=== PATIENT | female | born 1950 | race Caucasian/White ===

== ENCOUNTER 2016-08-07 13:18 | Emergency (ER) | payer MEDICARE ==
[~2016-08-07] VITALS: Ht 175.3 cm; Wt 72.6 kg
[~2016-08-07 13:18] MED LIST: ALPR1TAB2 PO; ALPR2TAB2 PO; ATOR20TA58 PO; FLUO20CA16 PO; HYDR-2679 PO; LEVO112T4 PO; ZOLP10TA PO
[2016-08-07 13:22] VITALS: BP 128/75
--- NOTE | 2016-08-07 14:02 | PHYS DOC ---
Past Medical History Past Medical History: Anxiety, Depression, GERD, High Cholesterol, Hypothyroid Additional Past Medical Histor: "gallbladder problems", "liver problem" Past Surgical History: Hysterectomy, Tonsillectomy Additional Past Surgical Histo: R wrist fx Alcohol Use: None Drug Use: None Adult General Chief Complaint Chief Complaint: WRIST PAIN [facility] HPI Patient is a 66 year old female who presents with complaint of left wrist pain after suffering a fall at home prior to arrival. Patient states that she actually tripped over a throw rug in her home and fell forward onto a carpeted floor. Patient states that she reached out with her left hand to try to catch her fall. Patient denies head injury or loss of consciousness. Patient states she started getting immediate pain in her left wrist and notes swelling along the dorsum of her wrist. Patient states that she is also having pain along the volar aspect of her wrist. Patient states that she is not on any blood thinners currently. Patient states her pain as 10 out of 10 and that the pain worsens with movement and improves with rest. Patient has not taken any medications at this time to help with symptoms. Review of Systems Review of Systems Constitutional: Denies fever or chills [] Eyes: Denies change in visual acuity, redness, or eye pain [] HENT: Denies nasal congestion or sore throat [] Respiratory: Denies cough or shortness of breath [] Cardiovascular: No additional information not addressed in HPI [] GI: Denies abdominal pain, nausea, vomiting, bloody stools or diarrhea [] : Denies dysuria or hematuria [] Musculoskeletal: Left wrist pain [] Integument: Denies rash or skin lesions [] Neurologic: Denies headache, focal weakness or sensory changes [] Current Medications Current Medications Current Medications Medications (Trade) Dose Ordered Sig/[facility] Start Time Stop Time Status Last Admin Dose Admin Acetaminophen/ Hydrocodone Bitart (Lortab 7.5/325) 1 tab 1X ONCE 08/07/16 14:30 08/07/16 14:31 DC 08/07/16 14:07 1 TAB Allergies Allergies Allergies Coded Allergies Type Severity Reaction Last Updated Verified No Known Drug Allergies 09/10/14 No Physical Exam Physical Exam Constitutional: Alert, afebrile, appears in moderate discomfort. [] HENT: Normocephalic, atraumatic, bilateral external ears normal, oropharynx moist, no oral exudates, nose normal. [] Eyes: PERRLA, EOMI, conjunctiva normal, no discharge. [] Neck: Normal range of motion, no tenderness, supple, no stridor. [] Cardiovascular:Heart rate regular rhythm, no murmur [] Lungs & Thorax: Bilateral breath sounds clear to auscultation [] Abdomen: Bowel sounds normal, soft, no tenderness, no masses, no pulsatile masses. [] Skin: Warm, dry, no erythema, no rash. [] Extremities: Hematoma formation over lateral dorsum left wrist, dorsal and volar tenderness to palpation, range of motion not tested secondary to pain, neurovascularly intact distal to injury. [] Neurologic: Alert and oriented X 3, normal motor function, normal sensory function, no focal deficits noted. [] Current Patient Data Vital Signs Vital Signs Date Time Temp Pulse Resp B/P Pulse Ox O2 Delivery O2 Flow Rate FiO2 08/07/16 14:07 14 96 Room Air 08/07/16 13:22 98.8 100 128/75 98.8 EKG EKG Not performed [] Radiology/Procedures Radiology/Procedures [facility] [address] [place] [address] IMAGING REPORT Signed PATIENT: EMPERATRIZ DONIS ACCOUNT: [id number] : 1950 LOCATION: ER AGE: 66 SEX: F EXAM STATUS: REG ER ORD. PHYSICIAN: NITHIN BARTON MD REASON: left wrist injury status post fall PROCEDURE: WRIST 3V LEFT Left wrist, 3 views, 08/07/2016: History: Fall, pain There is an impacted fracture of the distal radius. A fracture line involves its articular surface. The major fracture fragments are not significantly angulated or displaced. The carpal bones appear intact. There is moderate soft tissue swelling. IMPRESSION: Impacted fracture of the distal left radius with intra-articular extension. DICTATED and SIGNED BY: JEANINE ELY MD DATE: 08/07/16 1406 CC: RUTHIE TREVIÑO MD; NITHIN BARTON MD ~ [] Course & Med Decision Making Course & Med Decision Making Pertinent Labs and Imaging studies reviewed. (See chart for details) Patient's x-ray showed an intra-articular distal radius fracture that displayed impaction but no significant angulation. The patient was placed in a sugar tong splint that was applied by the emergency department semiconductor technician. My evaluation post splint application revealed normal capillary refill and normal sensation in all 5 digits of the left hand. The patient was treated with hydrocodone in the emergency department. The patient will be discharged with a prescription for hydrocodone and recommended follow-up with Dr. Perdomo in the next 5 days for reevaluation. Advised return emergency department for any worsening symptoms. Patient voiced understanding and in agreement with treatment plan. Dragon Disclaimer Dragon Disclaimer This electronic medical record was generated, in whole or in part, using a voice recognition dictation system. Departure Departure Impression: Primary Impression: Fracture of left distal radius Disposition: HOME, SELF-CARE Condition: IMPROVED Referrals: RUTHIE TREVIÑO MD (PCP) TIN PERDOMO II, MD Patient Instructions: Wrist Fracture Additional Instructions: Follow-up with Dr. Perdomo in the next 5 days. Return to the emergency department for any worsening symptoms. Scripts Hydrocodone/Apap 5-325 ([place] 5-325 Tablet)1 Each Tablet1-2 Tab PO Q4-6HRS PRN PAIN #40 TAB Prov:NITHIN BARTON MD 08/07/16 Problem Qualifiers Primary Impression: Fracture of left distal radius Encounter type: initial encounter Fracture type: closed Fracture morphology : other intra-articular Qualified Code: S52.572A - Other intraarticular fracture of lower end of left radius, initial encounter for closed fracture NITHIN BARTON MD Aug 07, 2016 14:02
--- NOTE | 2016-08-07 14:13 | RAD ---
Left wrist, 3 views, 08/07/2016: History: Fall, pain There is an impacted fracture of the distal radius. A fracture line involves its articular surface. The major fracture fragments are not significantly angulated or displaced. The carpal bones appear intact. There is moderate soft tissue swelling. IMPRESSION: Impacted fracture of the distal left radius with intra-articular extension.
[2016-08-07] MEDS ORDERED: HYDR-971 PO (14:17)
[2016-08-07] MEDS ORDERED: HYDROCODONE/APAP 7.5/325MG TABLET. PO ONE (14:30)
== END 2016-08-07 14:35 | disposition home or self-care (01) ==
LOC: ER 13:18
DX: S52.572A Other intraarticular fracture of lower end of left radius, initial encounter for closed fracture (principal); F41.9 Anxiety disorder, unspecified; F32.9 Major depressive disorder, single episode, unspecified; K21.9 Gastro-esophageal reflux disease without esophagitis; E78.00 Pure hypercholesterolemia, unspecified; E03.9 Hypothyroidism, unspecified; W01.0XXA Fall on same level from slipping, tripping and stumbling without subsequent striking against object, initial encounter; Y93.89 Activity, other specified; Y92.009 Unspecified place in unspecified non-institutional (private) residence as the place of occurrence of the external cause; Y99.8 Other external cause status
CPT/HCPCS: 29125; 73110; 99284-25

== ENCOUNTER 2017-03-06 23:33 | Inpatient (IN) | payer MEDICARE, MEDICAID ==
[~2017-03-06] VITALS: Ht 175.3 cm; Wt 73.1 kg
[~2017-03-06 23:33] MED LIST changes: +HYDR-971 PO
[2017-03-07] MEDS ORDERED: HYDROmorphone 2 MG/ML VIAL IV ONE
[2017-03-07] MEDS ORDERED: DIPHTH,PERTUSS(ACELL),TET TOX 0.5 ML DISP.SYRIN. VAX IM ONE
[2017-03-07] MEDS ORDERED: ONDANSETRON PF 4 MG/2 ML VIAL. IV ONE
--- NOTE | 2017-03-07 00:39 | RAD ---
RS Compliance Statement: One or more of the following individualized dose reduction techniques were utilized for this examination: 1. Automated exposure control 2. Adjustment of the mA and/or kV according to patient size 3. Use of iterative reconstruction technique CT head without contrast 03/07/2017 12:08 AM INDICATION: Trauma, fall COMPARISON: None available TECHNIQUE: Multiple axial CT images of the head were obtained from skull base through the vertex without intravenous contrast. FINDINGS: Head: Ventricles, sulci and basal cisterns are within normal limits. There is no hydrocephalus. Hart-white matter differentiation is normal. There is no acute intracranial hemorrhage. There is no mass, mass effect or midline shift. Posterior fossa is normal in appearance. Vascular calcifications are present involving the cavernous segments of internal carotid arteries Visualized portions of the orbits are normal. Small mucus retention cyst is identified in the right maxillary sinus. Mastoid air cells are well aerated. Scalp and calvaria are normal. IMPRESSION: No acute intracranial hemorrhage. Electronically signed by: Catalina Fletcher MD (03/07/2017 12:35 AM) [place] [id number]
--- NOTE | 2017-03-07 02:48 | RAD ---
PQRS Compliance Statement: One or more of the following individualized dose reduction techniques were utilized for this examination: 1. Automated exposure control 2. Adjustment of the mA and/or kV according to patient size 3. Use of iterative reconstruction technique CT pelvis without contrast March 07, 2017 INDICATION: Right hip fracture. COMPARISON: Right hip radiograph TECHNIQUE: Multiple axial CT images of the pelvis were obtained without intravenous contrast. Coronal and sagittal reformats are provided. FINDINGS: Small and large bowel are normal in caliber without evidence for bowel obstruction. Normal appendix is visualized. Visualized portions of the pelvic vasculature are normal in caliber. There are no pathologically enlarged lymph nodes in the pelvis. There is no free fluid. No pelvic masses are identified. Urinary bladder is within normal limits. Visualized portions of the lumbar spine are normal. Sacroiliac joints are maintained. Hip joints are symmetric with mild joint space narrowing. There is a minimally impacted right subcapital femoral fracture. No significant displacement or angulation. Acetabulum is intact. The pelvic ring is intact. Pubic symphysis is aligned. Left femur is intact. There is no significant associated soft tissue hematoma. IMPRESSION: 1. Minimally impacted, nondisplaced subcapital right femoral fracture. Critical results were discussed with the ER physician at 2:45 AM on 03/07/2017. Electronically signed by: Catalina Fletcher MD (03/07/2017 2:44 AM) [place] [id number]
[2017-03-07] MEDS ORDERED: fentaNYL PF VIAL 100 MCG/2 ML VIAL IV ONE (03:00)
[2017-03-07] MEDS ORDERED: IV NORMAL SALINE 500ML BAG 500 ML IV ONE (03:15)
[2017-03-07] MEDS ORDERED: ACETAMINOPHEN 325 MG TABLET. PO PRN (03:15)
[2017-03-07] MEDS ORDERED: ONDANSETRON PF 4 MG/2 ML VIAL. IV PRN (03:15)
--- NOTE | 2017-03-07 03:38 | PHYS DOC ---
Past Medical History Past Medical History: Anxiety, Depression, GERD, High Cholesterol, Hypothyroid Additional Past Medical Histor: "gallbladder problems", "liver problem" Past Surgical History: Hysterectomy, Tonsillectomy Additional Past Surgical Histo: R wrist fx Alcohol Use: None Drug Use: None Adult General Chief Complaint Chief Complaint: MECHANICAL FALL HPI HPI Patient is a 67 year old female who presents to the ER today secondary to tripping on a curb at [email or web address] currently complaining of pain to her right hip and her neck. Patient denies any loss of consciousness. Patient has a nausea vomiting. Patient denies any anticoagulant therapy. Patient reports that she's got pain to her right wrist, elbow, shoulder, hip. Patient reports that she's had a prior fracture to her left wrist however she has not followed up with orthopedics as had been scheduled for her. Review of Systems Review of Systems Constitutional: Denies fever or chills Eyes: Denies change in visual acuity, redness, or eye pain HENT: Denies nasal congestion or sore throat Respiratory: Denies cough or shortness of breath All other systems were reviewed and found to be within normal limits, except as documented in this note. Current Medications Current Medications Current Medications Medications (Trade) Dose Ordered Sig/Birgit Start Time Stop Time Status Last Admin Dose Admin Acetaminophen (Tylenol) 650 mg PRN Q4HRS PRN 03/07/17 03:15 03/08/17 03:14 Diphtheria/ Tetanus/Acell Pertussis (Boostrix) 0.5 ml ONCE ONCE 03/07/17 00:00 03/07/17 00:01 DC 03/07/17 00:58 0.5 ML Fentanyl Citrate (Fentanyl 2ml Vial) 50 mcg PRN Q2HR PRN 03/07/17 03:15 03/08/17 03:14 Hydromorphone HCl (Dilaudid) 1 mg 1X ONCE 03/07/17 00:00 03/07/17 00:01 DC 03/07/17 00:00 1 MG Ondansetron HCl (Zofran) 4 mg PRN Q8HRS PRN 03/07/17 03:15 03/08/17 03:14 Sodium Chloride 500 ml @ 500 mls/hr 1X ONCE 03/07/17 03:15 03/07/17 04:14 03/07/17 02:50 500 MLS/HR Allergies Allergies Allergies Coded Allergies Type Severity Reaction Last Updated Verified No Known Drug Allergies 09/10/14 No Physical Exam Physical Exam Constitutional: Well developed, well nourished, no acute distress, non-toxic appearance. HENT: Normocephalic, atraumatic, bilateral external ears normal, oropharynx moist, no oral exudates, nose normal. Eyes: PERRLA, EOMI, conjunctiva normal, no discharge. Neck: Normal range of motion, no tenderness, supple, no stridor. Cardiovascular:Heart rate regular rhythm, no murmur Lungs & Thorax: Bilateral breath sounds clear to auscultation Abdomen: Bowel sounds normal, soft, no tenderness, no masses, no pulsatile masses. Skin: Warm, dry, no erythema, no rash. Back: No tenderness, no CVA tenderness. Extremities: No tenderness, no cyanosis, no clubbing, ROM intact, no edema. Neurologic: Alert and oriented X 3, normal motor function, normal sensory function, no focal deficits noted. Psychologic: Affect normal, judgement normal, mood normal. Patient's ER physical exam is significant for tenderness to palpation to the patient's right hip. Right hip is not shortened or rotated. Patient does have tenderness palpation her right upper extremity greatest in her right wrist and elbow. Patient has no C-spine T-spine or L-spine tenderness to palpation. Patient does have tenderness palpation to her lower back bilaterally and her neck bilaterally. Patient's head is nontender. Patient does not present with any signs or symptoms of be concerning for intra- abdominal trauma thoracic intracranial or neurological deficit. Current Patient Data Vital Signs Vital Signs Date Time Temp Pulse Resp B/P (MAP) Pulse Ox O2 Delivery O2 Flow Rate FiO2 03/07/17 02:34 87 16 95/55 (68) 95 Nasal Cannula 2.0 03/06/17 23:34 97.9 97.9 EKG EKG [] Radiology/Procedures Radiology/Procedures [] Course & Med Decision Making Course & Med Decision Making Pertinent Labs and Imaging studies reviewed. (See chart for details) []X-ray of right hip revealed possible subcapital fracture. CT scan of the right hip confirmed diagnosis of a right subcapital femur fracture. X-ray of her head and neck did not reveal any acute pathology. X-ray of her wrist and elbow did not reveal any acute fracture or pathology. Assessment and plan 67-year-old female who presents here today secondary to a fall with no loss of consciousness. Patient's ER workup is been unremarkable except for a fracture of her right hip. I discussed the case with her primary care physician who is agreed to admit the patient. will be consult. Dragon Disclaimer Dragon Disclaimer This electronic medical record was generated, in whole or in part, using a voice recognition dictation system. Departure Departure Referrals: RUTHIE TREVIÑO MD (PCP) RADHA ANGEL MD Mar 07, 2017 03:38
[2017-03-07 04:30] VITALS: BP 137/67
[2017-03-07] MEDS ORDERED: PANT40TA5 (05:14)
[2017-03-07] MEDS ORDERED: TRAM50TA (05:14)
[2017-03-07] MEDS: IV NORMAL SALINE 1000ML BAG 1,000 ML IV SCH ×3 (05:16→21:25)
[2017-03-07] MEDS: fentaNYL PF VIAL 100 MCG/2 ML VIAL IV PRN ×7 (05:34→23:39)
[2017-03-07 07:00] VITALS: BP 129/76
--- NOTE | 2017-03-07 07:59 | RAD ---
3 views left wrist radiograph 03/07/2017 Clinical indication: Left wrist pain. Comparison: Left wrist 08/07/2016 Findings: Prior plate and screw fixation of distal radial fracture with near anatomic alignment and intact hardware. There appears to be complete healing at the distal radial fracture site. There is an old mildly displaced ulnar styloid fracture. There is diffuse soft tissue swelling about the wrist. Normal alignment of the carpal bones. Impression: 1. Prior distal radial internally fixed fracture and old mildly displaced ulnar styloid fracture. 2. No acute osseous abnormality. If there is focal snuffbox tenderness, immobilization and repeat radiograph in 10-14 days for radiographically occult scaphoid fracture is recommended
--- NOTE | 2017-03-07 08:00 | RAD ---
2 view right elbow radiograph 03/07/2017 Clinical indication: Right arm pain. Comparison: None. Findings: No acute fracture or traumatic malalignment. Joint spaces are maintained. No significant elbow joint effusion. Impression: No acute osseous abnormality.
--- NOTE | 2017-03-07 08:02 | RAD ---
AP pelvis, 2 views right hip 03/06/2017 2:00 AM Indication: trauma Comparison: None Findings: There is a minimally displaced right subcapital femoral neck fracture. Probable mild impaction is noted. No dislocation is seen. No other fractures are identified. No acute soft tissue changes are seen. Impression: Right femoral neck fracture as described.
--- NOTE | 2017-03-07 08:41 | PDOC ---
GENERAL General: right femoral neck fracture. ortho consult in. cleared medically for surgery pending lab,cxr, ekg. see dictated H&P. Problems: VITAL SIGNS Vital Signs: Vital Signs Date Time Temp Pulse Resp B/P (MAP) Pulse Ox O2 Delivery O2 Flow Rate FiO2 03/07/17 06:04 17 98 Nasal Cannula 2.0 03/07/17 04:30 98.0 64 137/67 (90) 98.0 I & O I & O Intake and Output 03/07/17 07:00 Intake Total 500 ml Balance 500 ml Intake Oral 0 ml IV Total 500 ml ALLERGIES Allergies: Allergies Coded Allergies Type Severity Reaction Last Updated Verified No Known Drug Allergies 09/10/14 No MEDS Medications: Current Medications Medications (Trade) Dose Ordered Sig/Birgit Start Time Stop Time Status Last Admin Dose Admin Acetaminophen (Tylenol) 650 mg PRN Q4HRS PRN 03/07/17 03:15 03/08/17 03:14 Diphtheria/ Tetanus/Acell Pertussis (Boostrix) 0.5 ml ONCE ONCE 03/07/17 00:00 03/07/17 00:01 DC 03/07/17 00:58 0.5 ML Fentanyl Citrate (Fentanyl 2ml Vial) 50 mcg PRN Q2HR PRN 03/07/17 03:15 03/08/17 03:14 03/07/17 05:34 50 MCG Hydromorphone HCl (Dilaudid) 1 mg 1X ONCE 03/07/17 00:00 03/07/17 00:01 DC 03/07/17 00:00 1 MG Ondansetron HCl (Zofran) 4 mg PRN Q8HRS PRN 03/07/17 03:15 03/08/17 03:14 03/07/17 05:33 4 MG Sodium Chloride 500 ml @ 500 mls/hr 1X ONCE 03/07/17 03:15 03/07/17 04:14 DC 03/07/17 02:50 500 MLS/HR RUTHIE TREVIÑO MD Mar 07, 2017 08:41
--- NOTE | 2017-03-07 09:01 | EKG ---
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
--- NOTE | 2017-03-07 09:07 | HP ---
ADMIT DATE: CHIEF COMPLAINT AND HISTORY OF PRESENT ILLNESS: This 67-year-old white female is well known to me from followup in the office. The patient was going to [employer] on the evening of admission, where she fell going in. It took 5 people to get her up into a chair. She presented to the Emergency Room, where she was found to have a right femoral neck fracture and admitted for the same. The patient states her balance has been bad now for the last couple of years, worse more. She has had a broken right wrist, left wrist, and now the hip over that length of time. PAST MEDICAL HISTORY: Remarkable for the prior fractures. She has a history of some gallbladder disease, hypothyroidism, hyperlipidemia, GERD, depression and anxiety. PAST SURGICAL HISTORY: Remarkable for prior right wrist fracture, hysterectomy and tonsillectomy. MEDICATIONS: Brought with the patient, listed on the computer and have been addressed. ALLERGIES: She has no known drug allergies. SOCIAL HISTORY: Noncontributory. FAMILY HISTORY: Noncontributory. REVIEW OF SYSTEMS: Remarkable primary for that of pain. PHYSICAL EXAMINATION: GENERAL: She is a well-developed, well-nourished white female in [id number] pain, but lying in the bed. VITAL SIGNS: Stable. She is afebrile. HEAD, EYES, EARS, NOSE AND THROAT: Unremarkable. NECK: Supple, without adenopathy or thyromegaly. CHEST: Clear to auscultation and percussion. HEART: Regular rate and rhythm, without S3, S4 or murmur. ABDOMEN: Soft, nontender, without hepatosplenomegaly or masses. EXTREMITIES: Reveal some shortening external rotation of the right leg, consistent with the hip fracture and tenderness in the right hip area. NEUROLOGIC: She is intact. IMPRESSION: Right hip fracture with multiple other problems as above. PLAN: The patient is medically cleared for surgery, pending labs that I am going to order at this point in time, as it does not appear any was obtained in the Emergency Room; and the patient will be monitored, managed and treated appropriately. RUTHIE TREVIÑO MD DR: CINTHYA/sharla JOB#: [id number] / [id number]
[2017-03-07 09:31] LABS: BASO # 0.1 x10^3/uL (0.0-0.2); BASO % 1 % (0-3); EOS % 0 % (0-3); HEMATOCRIT 36.4 % (36.0-47.0); HEMOGLOBIN 12.2 g/dL (12.0-15.5); LYMPH # 1.1 x10^3/uL (1.0-4.8); LYMPH % 14 % (24-48); MEAN CORPUSCULAR HEMOGLOBIN 31 pg (25-35); MEAN CORPUSCULAR HGB CONC 34 g/dL (31-37); MEAN CORPUSCULAR VOLUME 91 fL (79-100); MONO % 4 % (0-9); NEUT % 81 % (31-73); PLATELET COUNT 148 x10^3/uL (140-400); RED BLOOD COUNT 3.98 x10^6/uL (3.50-5.40); RED CELL DISTRIBUTION WIDTH 13.8 % (11.5-14.5); WHITE BLOOD COUNT 7.7 x10^3/uL (4.0-11.0)
[2017-03-07 09:54] LABS: ALBUMIN 3.1 g/dL (3.4-5.0); CALCIUM 8.3 mg/dL (8.5-10.1); CREATININE 0.8 mg/dL (0.6-1.0); GFR 71.3; POTASSIUM 4.8 mmol/L (3.5-5.1); TOTAL BILIRUBIN 0.7 mg/dL (0.2-1.0); TOTAL PROTEIN 6.3 g/dL (6.4-8.2)
[2017-03-07 10:03] LABS: INR 1.2 (0.8-1.1); PROTHROMBIN TIME PATIENT 14.1 SEC (11.7-14.0)
[2017-03-07 11:00] VITALS: BP 132/76
--- NOTE | 2017-03-07 14:43 | PDOC2 ---
CONSULT Date of Consult Date of Consult DATE: 03/07/17 TIME: 14:35 Reason for Consult Reason for Consult: right hip pain Identification/Chief Complaint Chief Complaint right hip pain Problems: Source Source: Chart review, Patient History of Present Illness Reason for Visit: This 67 -year-old [facility] She couldn't bear weight after that, and was brought to the hospital. She has had multiple falls recently. She had a left wrist fracture a few months ago but has not sought any additional treatment for that, and is still wearing a splint. She had a right wrist fracture about 1 or 2 years ago treated surgically. She is having workup for the frequent falls. She was cleared for surgery by Dr. Barnes. She reports right hip pain which is severe with any motion. She denies any hip problems before that, he did not use a cane or a walker. She lives in an apartment. She still drives. Past Medical History Psych: Anxiety Past Surgical History Past Surgical History: Hysterectomy Social History <1 pack per day Current Problem List Problem List Problems Medical Problems: (1) Hip fracture, right Status: Acute Current Medications Current Medications Current Medications Diphtheria/ Tetanus/Acell Pertussis (Boostrix) 0.5 ml ONCE ONCE VAX IM Last administered on 03/07/17 00:58; Start 03/07/17 at 00:00; Stop 03/07/17 at 00 :01; Status DC Hydromorphone HCl (Dilaudid) 1 mg 1X ONCE IV Last administered on 03/07/17 00:00; Start 03/07/17 at 00:00; Stop 03/07/17 at 00:01; Status DC Ondansetron HCl (Zofran) 4 mg 1X ONCE IV Last administered on 03/07/17 00:00 ; Start 03/07/17 at 00:00; Stop 03/07/17 at 00:01; Status DC Fentanyl Citrate (Fentanyl 2ml Vial) 50 mcg 1X ONCE IV Last administered on 02:55; Start 03/07/17 at 03:00; Stop 03/07/17 at 03:10; Status DC Ondansetron HCl (Zofran) 4 mg PRN Q8HRS PRN IV NAUSEA/VOMITING Last administered on 03/07/17 05:33; Start 03/07/17 at 03:15; Stop 03/08/17 at 03 :14 Fentanyl Citrate (Fentanyl 2ml Vial) 50 mcg PRN Q2HR PRN IV PAIN Last administered on 03/07/17 14:35; Start 03/07/17 at 03:15; Stop 03/08/17 at 03 :14 Sodium Chloride 1,000 ml @ 125 mls/hr Q8H IV Last administered on 03/07/17 11:43; Start 03/07/17 at 03:15; Stop 03/08/17 at 03:14 Acetaminophen (Tylenol) 650 mg PRN Q4HRS PRN PO FEVER; Start 03/07/17 at 03:15 ; Stop 03/08/17 at 03:14 Sodium Chloride 500 ml @ 500 mls/hr 1X ONCE IV Last administered on 02:50; Start 03/07/17 at 03:15; Stop 03/07/17 at 04:14; Status DC Active Scripts Active [place]ar 5-325 Tablet (Acetaminophen/Hydrocodone Bitart) 1 Each Tablet 1-2 Tab PO Q4-6HRS PRN Reported Tramadol Hcl 50 Mg Tablet Pantoprazole Sodium 40 Mg Tablet. Atorvastatin Calcium 20 Mg Tablet 20 Mg PO HS Levothyroxine Sodium 112 Mcg Tablet 112 Mcg PO DAILYAC Lortab 7.5-325 mg Tablet (Hydrocodone/Acetaminophen) 1 Each Tablet 1 Tab PO PRN Q4-6HRS PRN LAST DOSE GIVEN: DATE: TODAY AT 1999 Xanax (Alprazolam) 2 Mg Tablet 2 Mg PO HS TAKE AT BEDTIME Xanax (Alprazolam) 1 Mg Tablet 1 Tab PO PRN Q6HRS PRN LAST DOSE GIVEN: DATE: today TIME: at noon NEXT DOSE DUE: later today Ambien (Zolpidem Tartrate) 10 Mg Tablet 10 Mg PO HS PRN Prozac (Fluoxetine Hcl) 20 Mg Capsule 1 Cap PO DAILYWBKFT Allergies Allergies: Coded Allergies: No Known Drug Allergies (Unverified , 09/10/14) ROS Respiratory: No: SOB with excertion Cardiovascular: No Chest Pain Neurological: Yes Dizziness Physical Exam General: Alert, Cooperative HEENT: Atraumatic Lungs: Normal air movement Heart: Regular rate Abdomen: Soft Extremities: Other (the right hip skin is intact over the fracture. She has pain with any attempts at hip range of motion. The right lower extremity shows intact sensation and normal capillary refill and pulses. Length and alignment appear normal of the right lower extremity.) Skin: No breakdown Neuro: Normal speech, Sensation intact Psych/Mental Status: Mood NL MUSCULOSKELETAL: Abnormal exam of left (the left wrist has a well used and old- appearing emergency room type splint with Larry wrap. Finger motion is intact to the left hand. The right wrist has a well-healed volar scar from plate fixation and normal alignment. The left lower extremity shows normal alignment and no tenderness or pain with range of motion.) Vitals VITALS Vital Signs Date Time Temp Pulse Resp B/P (MAP) Pulse Ox O2 Delivery O2 Flow Rate FiO2 03/07/17 14:35 Nasal Cannula 2.0 03/07/17 11:00 100.6 77 18 132/76 (94) 95 100.6 Labs Labs Laboratory Tests Test 03/07/17 09:15 White Blood Count 7.7 x10^3/uL (4.0-11.0) Red Blood Count 3.98 x10^6/uL (3.50-5.40) Hemoglobin 12.2 g/dL (12.0-15.5) Hematocrit 36.4 % (36.0-47.0) Mean Corpuscular Volume 91 fL (79-100) Mean Corpuscular Hemoglobin 31 pg (25-35) Mean Corpuscular Hemoglobin Concent 34 g/dL (31-37) Red Cell Distribution Width 13.8 % (11.5-14.5) Platelet Count 148 x10^3/uL (140-400) Neutrophils (%) (Auto) 81 % (31-73) Lymphocytes (%) (Auto) 14 % (24-48) Monocytes (%) (Auto) 4 % (0-9) Eosinophils (%) (Auto) 0 % (0-3) Basophils (%) (Auto) 1 % (0-3) Neutrophils # (Auto) 6.3 x10^3uL (1.8-7.7) Lymphocytes # (Auto) 1.1 x10^3/uL (1.0-4.8) Monocytes # (Auto) 0.3 x10^3/uL (0.0-1.1) Eosinophils # (Auto) 0.0 x10^3/uL (0.0-0.7) Basophils # (Auto) 0.1 x10^3/uL (0.0-0.2) Prothrombin Time 14.1 SEC (11.7-14.0) Prothromb Time International Ratio 1.2 (0.8-1.1) Activated Partial Thromboplast Time 35 SEC (24-38) Sodium Level 140 mmol/L (136-145) Potassium Level 4.8 mmol/L (3.5-5.1) Chloride Level 104 mmol/L (98-107) Carbon Dioxide Level 28 mmol/L (21-32) Anion Gap 8 (6-14) Blood Urea Nitrogen 10 mg/dL (7-20) Creatinine 0.8 mg/dL (0.6-1.0) Estimated GFR (Cockcroft-Gault) 71.3 BUN/Creatinine Ratio 13 (6-20) Glucose Level 106 mg/dL (70-99) Calcium Level 8.3 mg/dL (8.5-10.1) Total Bilirubin 0.7 mg/dL (0.2-1.0) Aspartate Amino Transf (AST/SGOT) 15 U/L (15-37) Alanine Aminotransferase (ALT/SGPT) 21 U/L (14-59) Alkaline Phosphatase 142 U/L (46-116) Total Protein 6.3 g/dL (6.4-8.2) Albumin 3.1 g/dL (3.4-5.0) Albumin/Globulin Ratio 1.0 (1.0-1.7) Laboratory Tests Test 03/07/17 09:15 White Blood Count 7.7 x10^3/uL (4.0-11.0) Red Blood Count 3.98 x10^6/uL (3.50-5.40) Hemoglobin 12.2 g/dL (12.0-15.5) Hematocrit 36.4 % (36.0-47.0) Mean Corpuscular Volume 91 fL (79-100) Mean Corpuscular Hemoglobin 31 pg (25-35) Mean Corpuscular Hemoglobin Concent 34 g/dL (31-37) Red Cell Distribution Width 13.8 % (11.5-14.5) Platelet Count 148 x10^3/uL (140-400) Neutrophils (%) (Auto) 81 % (31-73) Lymphocytes (%) (Auto) 14 % (24-48) Monocytes (%) (Auto) 4 % (0-9) Eosinophils (%) (Auto) 0 % (0-3) Basophils (%) (Auto) 1 % (0-3) Neutrophils # (Auto) 6.3 x10^3uL (1.8-7.7) Lymphocytes # (Auto) 1.1 x10^3/uL (1.0-4.8) Monocytes # (Auto) 0.3 x10^3/uL (0.0-1.1) Eosinophils # (Auto) 0.0 x10^3/uL (0.0-0.7) Basophils # (Auto) 0.1 x10^3/uL (0.0-0.2) Prothrombin Time 14.1 SEC (11.7-14.0) Prothromb Time International Ratio 1.2 (0.8-1.1) Activated Partial Thromboplast Time 35 SEC (24-38) Sodium Level 140 mmol/L (136-145) Potassium Level 4.8 mmol/L (3.5-5.1) Chloride Level 104 mmol/L (98-107) Carbon Dioxide Level 28 mmol/L (21-32) Anion Gap 8 (6-14) Blood Urea Nitrogen 10 mg/dL (7-20) Creatinine 0.8 mg/dL (0.6-1.0) Estimated GFR (Cockcroft-Gault) 71.3 BUN/Creatinine Ratio 13 (6-20) Glucose Level 106 mg/dL (70-99) Calcium Level 8.3 mg/dL (8.5-10.1) Total Bilirubin 0.7 mg/dL (0.2-1.0) Aspartate Amino Transf (AST/SGOT) 15 U/L (15-37) Alanine Aminotransferase (ALT/SGPT) 21 U/L (14-59) Alkaline Phosphatase 142 U/L (46-116) Total Protein 6.3 g/dL (6.4-8.2) Albumin 3.1 g/dL (3.4-5.0) Albumin/Globulin Ratio 1.0 (1.0-1.7) Images Images I reviewed the CT scan and the x-rays of the right hip. This is an impacted nearly incomplete fracture, really a Garden 1 type fracture. There is about 5 mm of shortening of the lateral neck, but minimal angulation. CT scan and lateral x-ray showed no angulation or displacement in the lateral plane. Assessment/Plan Assessment/Plan I spoke to the patient about the risks benefits and alternatives of treatment for the femoral neck fracture. With the Garden 1 pattern and minimal displacement, percutaneous screw fixation is recommended. There are some risks of screw fixation, such as risk of nonunion, or significant malunion, or avascular necrosis. Those risks are fairly minimal and I believe screw fixation is still going to be the best for her. I considered other options and discussed those with her, including a cemented bipolar arthroplasty or total hip replacement. She is in quite a bit of pain, so nonoperative treatment does not seem reasonable. Arthroplasty is much more invasive surgery and I don't recommend it given the minimal displacement seen on x-ray. Her smoking likely impairs the healing and it would be best if she could quit smoking entirely. She stated understanding of the risks benefits and alternatives and desires to proceed with screw fixation. Surgery planned 8 a.m. on 03/08. EDUARDO LOMAS MD Mar 07, 2017 14:43
[2017-03-07 15:00] VITALS: BP 111/67
--- NOTE | 2017-03-07 15:58 | RAD ---
Portable chest, 03/07/2017: History: Preop evaluation for hip fracture Comparison is made to a study from 10/19/2014. The patient is rotated to the left. There is a large hiatal hernia. There is adjacent chronic atelectasis in the left base. The heart is at the upper limits of normal in size. The pulmonary vascularity is normal. There are scattered parenchymal scars. An unchanged linear opacity in the right base suggests scarring or recurrent atelectasis. No pleural fluid or pneumothorax is seen. The bony structures are demineralized. IMPRESSION: 1. Large hiatal hernia with adjacent chronic atelectasis in the left base. 2. Mild right basilar discoid atelectasis or scarring.
[2017-03-07 19:50] VITALS: BP 120/67
[2017-03-07] MEDS: ALPRAZolam 1 MG TABLET PO PRN (21:22)
[2017-03-07] MEDS: ATORVASTATIN CALCIUM 20 MG TABLET PO SCH (21:22)
[2017-03-07 23:00] VITALS: BP 130/80
[2017-03-07] MEDS: ZOLPIDEM 5 MG TABLET. PO PRN (23:39)
[2017-03-08] VITALS (14 sets, daily range): BP systolic 123–172; BP diastolic 56–90
[2017-03-08] MEDS: fentaNYL PF VIAL 100 MCG/2 ML VIAL IV PRN ×3 (05:33→09:18)
[2017-03-08] MEDS ORDERED: BUPIVACAINE-EPI 0.25%-1:200000 50 ML VIAL. ONE (06:53)
[2017-03-08] MEDS ORDERED: ONDANSETRON PF 4 MG/2 ML VIAL. ONE (07:02)
[2017-03-08] MEDS ORDERED: PROPOFOL 20 ML IV ONE (07:02)
[2017-03-08] MEDS ORDERED: LIDOCAINE 2% PF Vial for OR 5 ML VIAL. ONE (07:02)
[2017-03-08] MEDS ORDERED: DEXAMETHASONE SOD PHOS 20 MG/5 ML VIAL. ONE (07:03)
[2017-03-08] MEDS ORDERED: IV RINGERS,LACTATED 1000ML 1,000 ML IV SCH (07:20)
[2017-03-08] MEDS ORDERED: MIDAZOLAM HCL/PF 2 MG/2 ML VIAL. ONE (07:25)
[2017-03-08] MEDS ORDERED: ONDANSETRON PF 4 MG/2 ML VIAL. IV PRN ×2 (07:30→08:45)
[2017-03-08] MEDS ORDERED: fentaNYL PF VIAL 100 MCG/2 ML VIAL IV PRN ×2 (07:30→08:45)
[2017-03-08] MEDS: LEVOTHYROXINE 112 MCG TABLET PO SCH ×2 (07:30→12:09)
[2017-03-08] MEDS ORDERED: PROCHLORPERAZINE 10 MG/2 ML VIAL. IV PRN (07:30)
[2017-03-08] MEDS ORDERED: LIDOCAINE 1% PF 2 ML VIAL. ID PRN (07:30)
[2017-03-08] MEDS: PANTOPRAZOLE 40 MG TABLET.DR. PO SCH (07:30)
[2017-03-08] MEDS ORDERED: MORPHINE SULFATE 2 MG/ML DISP.SYRIN. IV PRN (07:30)
[2017-03-08] MEDS ORDERED: HYDROmorphone 2 MG/ML VIAL IV PRN (07:30)
[2017-03-08] MEDS: FLUoxetine HCL 20 MG CAPSULE PO SCH ×3 (07:31→12:10)
[2017-03-08] MEDS ORDERED: PHENYLEPHRINE in 0.9% NACL PF 1 MG/10 ML DISP.SYRIN. IV ONE (08:10)
[2017-03-08] MEDS ORDERED: SEVOFLURANE 31 TO 60 MINUTES. IH ONE (08:19)
--- NOTE | 2017-03-08 08:21 | PDOC4 ---
Operative Note Operative Note Date of Procedure: March 08, 2017 Pre-Op Diagnosis: Closed right hip femoral neck fracture Post-Op Diagnosis: Closed right hip femoral neck fracture Procedure: Percutaneous screw fixation right hip femoral neck fracture ( CPT 54422) Surgeon: Eduardo Mckeon MD Puller Through: Argelia Hart PA-C Anesthesia: General EBL: 50 mL Specimens Obtained: none Complications: none Drains: none INDICATION FOR PROCEDURE: The patient is a 67 year-old with a right hip fracture. X-rays show a minimally displaced femoral neck fracture. The patient and I discussed the risks, benefits and alternatives of treatment. The alternative for treatment is bedrest without surgery, which I generally do not recommend due to the risks of bedsores, pneumonia, blood clots, and continued pain. I recommended percutaneous screw fixation, and I talked to her about the potential risks of this, including bleeding, infection, blood clots, nonunion, or other potential surgical or anesthetic complications. All of her questions were answered about surgery and she desired to proceed. A written consent was obtained. PROCEDURE IN DETAIL: The patient was identified in the preoperative holding area. The correct right hip was marked by me. The patient was taken to the operating room where a general anesthetic was used. Preoperative antibiotics were given intravenously. The patient was positioned carefully on the HANA table, with the fractured right leg in a padded traction foot boot, and the well leg in well-leg almendarez. A well-padded perineal post was used. A time-out procedure was performed. The image intensifier was used to confirm the fracture position. The limb was thoroughly prepped sterilely, and then a sterile Ioban barrier hip drape was applied. The image intensifier was used to plan the correct location for the incision. A small lateral incision was made with a scalpel, and a Fleming elevator was used on the lateral femoral cortex. Guide wires were placed in a percutaneous fashion, along the femoral neck, into the femoral head. Attempt was made to place three widely spaced wires, in a triangle pattern, with the most anterior-superior wire placed first to prevent varus deformity. After satisfactory guide wire placement, the wires were measured, and then self-tapping self-drilling 7.3 mm screws (Synthes) were placed over the guide wires. These were placed on power, but final tightening was by hand with a manual cannulated screwdriver. Satisfactory fixation was noted on the AP and lateral C-arm views, and then the guide wires were removed. The incision was irrigated with iodinated saline. The fascia was closed with # 2 Vicryl. Ms. Hart completed the case. She placed absorbable 2-0 Vicryl suture in the subcutaneous tissues, and then kasi were placed in the skin. Local anesthetic with epinephrine was injected for additional hemostasis and pain relief. Xeroform and a bulky sterile dressing were applied. The patient was gently removed from the fracture table and transferred to a hospital bed. The patient tolerated the procedure well. Needle and sponge counts were correct. There were no apparent complications. EDUARDO MCKEON MD Mar 08, 2017 08:21
[2017-03-08] MEDS ORDERED: POLYETHYLENE GLYCOL 3350 17 GM PACKET. PO PRN (08:45)
[2017-03-08] MEDS ORDERED: oxyCODONE IR 5 MG TABLET PO PRN (08:45)
[2017-03-08] MEDS ORDERED: ceFAZolin SODIUM 1 GM in IV DEXTROSE 5% 50 ML IV SCH (08:45)
[2017-03-08] MEDS ORDERED: MORPHINE SULFATE 4 MG/ML DISP.SYRIN. IV PRN (08:45)
[2017-03-08] MEDS ORDERED: DEXTROSE 50% 25 GM / 50ML DISP.SYRIN. IV PRN (08:45)
[2017-03-08] MEDS: ASPIRIN 325 MG TABLET PO SCH ×2 (09:00→20:58)
[2017-03-08] MEDS: CHOLECALCIFEROL (VITAMIN D3) 5,000 UNIT CAPSULE PO SCH (09:00)
[2017-03-08] MEDS: SENNOSIDES/DOCUSATE 8.6/50MG TABLET. PO SCH (09:00)
[2017-03-08] MEDS: MORPHINE SULFATE 4 MG/ML DISP.SYRIN. IV PRN ×3 (09:49→21:05)
--- NOTE | 2017-03-08 12:04 | PDOC ---
GENERAL General: vss and afebrile. post-op and awake and alert. expected pain. chest clear and heart regular and abdomen benign and right hip dressed. will follow post-op and will likely need snu on dc. Problems: VITAL SIGNS Vital Signs: Vital Signs Date Time Temp Pulse Resp B/P (MAP) Pulse Ox O2 Delivery O2 Flow Rate FiO2 03/08/17 10:23 99.2 89 16 144/85 (104) 93 Nasal Cannula 2.0 99.2 I & O I & O Intake and Output 03/08/17 07:00 Intake Total 1528 ml Output Total 2125 ml Balance -597 ml Intake Oral 460 ml IV Total 1068 ml Output Urine Total 2125 ml # Voids 3 # Bowel Movements 1 ALLERGIES Allergies: Allergies Coded Allergies Type Severity Reaction Last Updated Verified No Known Drug Allergies 09/10/14 No MEDS Medications: Current Medications Medications (Trade) Dose Ordered Sig/Birgit Start Time Stop Time Status Last Admin Dose Admin Acetaminophen (Tylenol) 650 mg PRN Q4HRS PRN 03/07/17 03:15 03/08/17 03:14 DC 03/07/17 17:34 650 MG Acetaminophen/ Hydrocodone Bitart (Lortab 7.5/325) 2 tab PRN Q4HRS PRN 03/08/17 08:45 Alprazolam (Xanax) 1 mg PRN Q6HRS PRN 03/07/17 19:15 03/07/17 21:22 1 MG Aspirin (Yessica Aspirin) 325 mg BID 03/08/17 09:00 Atorvastatin Calcium (Lipitor) 20 mg HS 03/07/17 21:00 03/07/17 21:22 20 MG Bisacodyl (Dulcolax Supp) 10 mg 1X PRN PRN 03/09/17 16:00 03/10/17 15:59 Bupivacaine HCl/ Epinephrine Bitart (Marcaine-Epi 0.25%-1:988081) 50 ml STK-MED ONCE 03/08/17 06:53 03/08/17 06:54 DC 03/08/17 07:57 30 ML Cefazolin Sodium (Ancef) 1 gm Q6H 03/08/17 14:00 03/09/17 02:01 Cefazolin Sodium 1 gm/Dextrose 50 ml @ 100 mls/hr Q6H 03/08/17 08:45 11/18/17 21:14 UNV Cefazolin Sodium/ Dextrose 50 ml @ 100 mls/hr 1X PREOP PRN 03/07/17 14:45 03/08/17 07:50 100 MLS/HR Dexamethasone Sodium Phosphate (Decadron) 20 mg STK-MED ONCE 03/08/17 07:03 03/08/17 07:04 DC Dextrose (Dextrose 50%-Water Syringe) 12.5 gm PRN Q15MIN PRN 03/08/17 08:45 Diphtheria/ Tetanus/Acell Pertussis (Boostrix) 0.5 ml ONCE ONCE 03/07/17 00:00 03/07/17 00:01 DC 03/07/17 00:58 0.5 ML Fentanyl Citrate (Fentanyl 2ml Vial) 25 mcg PRN Q1HR PRN 03/08/17 08:45 Fluoxetine HCl (PROzac) 20 mg DAILYWBKFT 03/08/17 08:00 Hydromorphone HCl (Dilaudid) 0.5 mg PRN Q10MIN PRN 03/08/17 07:30 03/09/17 07:29 Levothyroxine Sodium (Synthroid) 112 mcg DAILYAC 03/08/17 07:30 Lidocaine HCl (Lidocaine Pf 2% Vial) 5 ml STK-MED ONCE 03/08/17 07:02 03/08/17 07:03 DC Lidocaine HCl (Xylocaine-Mpf 1% Vial) 2 ml 1X PRN PRN 03/08/17 07:30 03/09/17 07:29 Magnesium Hydroxide (Milk Of Magnesia) 2,400 mg 1X PRN PRN 03/09/17 06:00 03/10/17 05:59 Midazolam HCl (Versed) 2 mg STK-MED ONCE 03/08/17 07:25 03/08/17 07:26 DC Morphine Sulfate 4 mg PRN Q2HR PRN 03/08/17 08:45 03/08/17 09:49 4 MG Ondansetron HCl (Zofran) 4 mg PRN Q4HRS PRN 03/08/17 08:45 Oxycodone HCl (Roxicodone) 5 mg PRN Q3HRS PRN 03/08/17 08:45 Pantoprazole Sodium (Protonix) 40 mg DAILYAC 03/08/17 07:30 Phenylephrine HCl 1 mg STK-MED ONCE 03/08/17 08:10 03/08/17 08:11 DC Polyethylene Glycol (miraLAX PACKET) 17 gm PRN DAILY PRN 03/08/17 08:45 Prochlorperazine Edisylate (Compazine) 5 mg PACU PRN PRN 03/08/17 07:30 03/09/17 07:29 Propofol 20 ml @ As Directed STK-MED ONCE 03/08/17 07:02 03/08/17 07:03 DC Ringer's Solution 1,000 ml @ 30 mls/hr Q24H 03/08/17 07:20 03/08/17 19:19 Senna/Docusate Sodium (Senna Plus) 1 tab DAILY 03/08/17 09:00 Sevoflurane (Ultane) 30 ml STK-MED ONCE 03/08/17 08:19 03/08/17 08:20 DC Sodium Chloride 500 ml @ 500 mls/hr 1X ONCE 03/07/17 03:15 03/07/17 04:14 DC 03/07/17 02:50 500 MLS/HR Vitamin D (Vitamin D3) 5,000 unit DAILY 03/08/17 09:00 Zolpidem Tartrate (Ambien) 5 mg PRN QHS PRN 03/07/17 19:15 03/07/17 23:39 5 MG RUTHIE TREVIÑO MD Mar 08, 2017 12:04
[2017-03-08] MEDS: HYDROcodone/APAP 7.5/325MG 1 TAB TABLET PO PRN ×2 (13:39→21:04)
[2017-03-08] MEDS: ceFAZolin SODIUM IV Push 1 GM VIAL. IVP SCH ×2 (13:41→21:05)
[2017-03-08] MEDS: ALPRAZolam 1 MG TABLET PO PRN ×2 (17:21→23:36)
[2017-03-08] MEDS: ATORVASTATIN CALCIUM 20 MG TABLET PO SCH (20:58)
[2017-03-08] MEDS: ZOLPIDEM 5 MG TABLET. PO PRN (23:36)
[2017-03-09] MEDS: ceFAZolin SODIUM IV Push 1 GM VIAL. IVP SCH (02:22)
[2017-03-09 03:01] VITALS: BP 125/76
[2017-03-09] MEDS ORDERED: MAGNESIUM HYDROXIDE 2,400 MG/30 ML ORAL.SUSP. PO PRN (06:00)
[2017-03-09] MEDS: PANTOPRAZOLE 40 MG TABLET.DR. PO SCH (06:39)
[2017-03-09] MEDS: LEVOTHYROXINE 112 MCG TABLET PO SCH (06:39)
[2017-03-09 07:41] VITALS: BP 128/57
[2017-03-09] MEDS: HYDROcodone/APAP 7.5/325MG 1 TAB TABLET PO PRN ×3 (08:33→23:02)
[2017-03-09] MEDS: CHOLECALCIFEROL (VITAMIN D3) 5,000 UNIT CAPSULE PO SCH (08:33)
[2017-03-09] MEDS: MORPHINE SULFATE 4 MG/ML DISP.SYRIN. IV PRN ×3 (08:33→23:01)
[2017-03-09] MEDS: SENNOSIDES/DOCUSATE 8.6/50MG TABLET. PO SCH (08:34)
[2017-03-09] MEDS: ASPIRIN 325 MG TABLET PO SCH ×2 (08:34→20:56)
[2017-03-09 08:37] LABS: HEMOGLOBIN 10.4 g/dL (12.0-15.5)
--- NOTE | 2017-03-09 09:39 | PDOC ---
PROGRESS NOTES Subjective Subjective Doing well. Pt states she feels much better now than before surgery. She was able to walk a few steps today without difficulty. Objective Vital Signs Vital Signs Date Time Temp Pulse Resp B/P (MAP) Pulse Ox O2 Delivery O2 Flow Rate FiO2 03/09/17 09:05 98 Nasal Cannula 2.0 03/09/17 03:01 97.6 55 20 125/76 (92) 97.6 Physical Exam Sitting in recliner with legs elevated. Left arm splint was removed. Dry, flakey skin of left forearm. She actually has pretty good range of motion of the left wrist. She is able to extend all fingers and make a composite fist. Very mild tenderness to palpation over distal radius. Neurovascularly intact. Right hip dressing dry and intact. Calf soft and nontender with a negative Nia 's sign. Good dorsiflexion and plantarflexion with no evidence of neurovascular injury. Peripheral pulses and light touch sensation intact. Labs Laboratory Tests Test 03/09/17 08:25 Hemoglobin 10.4 g/dL (12.0-15.5) Hematocrit 31.0 % (36.0-47.0) Mean Corpuscular Hemoglobin Concent 34 g/dL (31-37) Laboratory Tests Test 03/09/17 08:25 Hemoglobin 10.4 g/dL (12.0-15.5) Hematocrit 31.0 % (36.0-47.0) Mean Corpuscular Hemoglobin Concent 34 g/dL (31-37) Assessment Assessment POD #1 right hip percutaneous pinning Left distal radius fracture 08/07/16 Problems: Plan Plan of Care Continue POC including DVT prophylaxis and therapy. August weightbear as tolerated with a walker. The left arm splint from July was removed from left wrist and x- rays were ordered to evaluate healing of the old fracture. A cockup wrist splint was ordered. SON LOWRY Mar 09, 2017 09:39
[2017-03-09] MEDS: ALPRAZolam 1 MG TABLET PO PRN ×3 (09:50→23:00)
--- NOTE | 2017-03-09 11:20 | PDOC ---
GENERAL General: vss and afebrile. awake and alert and pain very well controlled. able to transfer on her own. Hb dropped to 10.4. chest clear, heart regular, abdomen benign, and nv leg intact. will get snu eval as she lives alone for dc. continue same. ortho has taken an xray of her left wrist which is pending. Problems: VITAL SIGNS Vital Signs: Vital Signs Date Time Temp Pulse Resp B/P (MAP) Pulse Ox O2 Delivery O2 Flow Rate FiO2 03/09/17 09:35 98 Nasal Cannula 2.0 03/09/17 07:41 98.3 58 18 128/57 (80) 98.3 I & O I & O Intake and Output 03/09/17 07:00 Intake Total 1650 ml Output Total 1700 ml Balance -50 ml Intake Oral 700 ml IV Total 950 ml Output Urine Total 1650 ml Estimated Blood Loss 50 ml ALLERGIES Allergies: Allergies Coded Allergies Type Severity Reaction Last Updated Verified No Known Drug Allergies 09/10/14 No MEDS Medications: Current Medications Medications (Trade) Dose Ordered Sig/Birgit Start Time Stop Time Status Last Admin Dose Admin Acetaminophen (Tylenol) 650 mg PRN Q4HRS PRN 03/07/17 03:15 03/08/17 03:14 DC 03/07/17 17:34 650 MG Acetaminophen/ Hydrocodone Bitart (Lortab 7.5/325) 2 tab PRN Q4HRS PRN 03/08/17 08:45 Alprazolam (Xanax) 1 mg PRN Q6HRS PRN 03/07/17 19:15 03/09/17 09:50 1 MG Aspirin (Yessica Aspirin) 325 mg BID 03/08/17 09:00 03/09/17 08:34 325 MG Atorvastatin Calcium (Lipitor) 20 mg HS 03/07/17 21:00 03/08/17 20:58 20 MG Bisacodyl (Dulcolax Supp) 10 mg 1X PRN PRN 03/09/17 16:00 03/10/17 15:59 Bupivacaine HCl/ Epinephrine Bitart (Marcaine-Epi 0.25%-1:058059) 50 ml STK-MED ONCE 03/08/17 06:53 03/08/17 06:54 DC 03/08/17 07:57 30 ML Cefazolin Sodium (Ancef) 1 gm Q6H 03/08/17 14:00 03/09/17 02:01 DC 03/09/17 02:22 1 GM Cefazolin Sodium 1 gm/Dextrose 50 ml @ 100 mls/hr Q6H 03/08/17 08:45 03/08/17 21:14 UNV Cefazolin Sodium/ Dextrose 50 ml @ 100 mls/hr 1X PREOP PRN 03/07/17 14:45 03/08/17 07:50 100 MLS/HR Dexamethasone Sodium Phosphate (Decadron) 20 mg STK-MED ONCE 03/08/17 07:03 03/08/17 07:04 DC Dextrose (Dextrose 50%-Water Syringe) 12.5 gm PRN Q15MIN PRN 03/08/17 08:45 Diphtheria/ Tetanus/Acell Pertussis (Boostrix) 0.5 ml ONCE ONCE 03/07/17 00:00 03/07/17 00:01 DC 03/07/17 00:58 0.5 ML Fentanyl Citrate (Fentanyl 2ml Vial) 25 mcg PRN Q1HR PRN 03/08/17 08:45 Fluoxetine HCl (PROzac) 20 mg DAILYWBKFT 03/08/17 08:00 03/08/17 18:38 DC Hydromorphone HCl (Dilaudid) 0.5 mg PRN Q10MIN PRN 03/08/17 07:30 03/09/17 07:29 DC Levothyroxine Sodium (Synthroid) 112 mcg DAILYAC 03/08/17 07:30 03/09/17 06:39 112 MCG Lidocaine HCl (Lidocaine Pf 2% Vial) 5 ml STK-MED ONCE 03/08/17 07:02 03/08/17 07:03 DC Lidocaine HCl (Xylocaine-Mpf 1% Vial) 2 ml 1X PRN PRN 03/08/17 07:30 03/09/17 07:29 DC Magnesium Hydroxide (Milk Of Magnesia) 2,400 mg 1X PRN PRN 03/09/17 06:00 03/10/17 05:59 Midazolam HCl (Versed) 2 mg STK-MED ONCE 03/08/17 07:25 03/08/17 07:26 DC Morphine Sulfate 4 mg PRN Q2HR PRN 03/08/17 08:45 03/09/17 08:33 4 MG Ondansetron HCl (Zofran) 4 mg PRN Q4HRS PRN 03/08/17 08:45 Oxycodone HCl (Roxicodone) 5 mg PRN Q3HRS PRN 03/08/17 08:45 Pantoprazole Sodium (Protonix) 40 mg DAILYAC 03/08/17 07:30 03/09/17 06:39 40 MG Phenylephrine HCl 1 mg STK-MED ONCE 03/08/17 08:10 03/08/17 08:11 DC Polyethylene Glycol (miraLAX PACKET) 17 gm PRN DAILY PRN 03/08/17 08:45 Prochlorperazine Edisylate (Compazine) 5 mg PACU PRN PRN 03/08/17 07:30 03/09/17 07:29 DC Propofol 20 ml @ As Directed STK-MED ONCE 03/08/17 07:02 03/08/17 07:03 DC Ringer's Solution 1,000 ml @ 30 mls/hr Q24H 03/08/17 07:20 03/08/17 19:19 DC Senna/Docusate Sodium (Senna Plus) 1 tab DAILY 03/08/17 09:00 Sevoflurane (Ultane) 30 ml STK-MED ONCE 03/08/17 08:19 03/08/17 08:20 DC Sodium Chloride 500 ml @ 500 mls/hr 1X ONCE 03/07/17 03:15 03/07/17 04:14 DC 03/07/17 02:50 500 MLS/HR Vitamin D (Vitamin D3) 5,000 unit DAILY 03/08/17 09:00 03/09/17 08:33 5,000 UNIT Zolpidem Tartrate (Ambien) 5 mg PRN QHS PRN 03/07/17 19:15 03/08/17 23:36 5 MG LAB Lab: Laboratory Tests Test 03/09/17 08:25 Hemoglobin 10.4 g/dL (12.0-15.5) Hematocrit 31.0 % (36.0-47.0) Mean Corpuscular Hemoglobin Concent 34 g/dL (31-37) RUTHIE TREVIÑO MD Mar 09, 2017 11:20
[2017-03-09 11:31] VITALS: BP 119/67
--- NOTE | 2017-03-09 13:10 | RAD ---
WRIST 3V LEFT Clinical Indication: Reported wrist fracture in July. Splint removed today. Comparison: Left wrist, 3 views 08/07/2016. Findings: Interval healing of distal radius fracture. Fracture line is no longer visualized. Soft tissue swelling has resolved. There is diffuse demineralization. No acute fracture is identified. Radiocarpal joint space narrowing. IMPRESSION: Old healed fracture of the distal radius.
[2017-03-09 15:00] VITALS: BP 124/76
[2017-03-09] MEDS ORDERED: BISACODYL 10 MG SUPP.RECT. PR PRN (16:00)
[2017-03-09] MEDS: fentaNYL PF VIAL 100 MCG/2 ML VIAL IV PRN (17:25)
[2017-03-09 19:00] VITALS: BP 113/67
[2017-03-09] MEDS: ATORVASTATIN CALCIUM 20 MG TABLET PO SCH (20:56)
[2017-03-09] MEDS: ZOLPIDEM 5 MG TABLET. PO PRN (23:00)
[2017-03-09 23:29] VITALS: BP 110/70
[2017-03-10 03:35] VITALS: BP 110/69
[2017-03-10] MEDS: LEVOTHYROXINE 112 MCG TABLET PO SCH (06:23)
[2017-03-10] MEDS: PANTOPRAZOLE 40 MG TABLET.DR. PO SCH (06:23)
[2017-03-10 07:57] VITALS: BP 130/72
[2017-03-10] MEDS: ALPRAZolam 1 MG TABLET PO PRN ×2 (07:57→17:33)
[2017-03-10] MEDS: HYDROcodone/APAP 7.5/325MG 1 TAB TABLET PO PRN ×3 (07:57→17:34)
[2017-03-10] MEDS: CHOLECALCIFEROL (VITAMIN D3) 5,000 UNIT CAPSULE PO SCH (07:57)
[2017-03-10] MEDS: ASPIRIN 325 MG TABLET PO SCH ×2 (07:57→21:30)
[2017-03-10] MEDS: SENNOSIDES/DOCUSATE 8.6/50MG TABLET. PO SCH (07:58)
[2017-03-10] MEDS: MORPHINE SULFATE 4 MG/ML DISP.SYRIN. IV PRN (07:58)
--- NOTE | 2017-03-10 08:41 | PDOC ---
GENERAL General: vss and afebrile. awake and alert and anxious. chest clear and heart regular. right leg nv ok. snu eval in. encouraged therapy. some pain this am which is expected. Problems: VITAL SIGNS Vital Signs: Vital Signs Date Time Temp Pulse Resp B/P (MAP) Pulse Ox O2 Delivery O2 Flow Rate FiO2 03/10/17 07:58 97 Nasal Cannula 2.0 03/10/17 07:57 98.6 77 18 130/72 (91) 98.6 I & O I & O Intake and Output 03/10/17 06:59 Intake Total 830 ml Output Total 1120 ml Balance -290 ml Intake Oral 830 ml Output Urine Total 1120 ml ALLERGIES Allergies: Allergies Coded Allergies Type Severity Reaction Last Updated Verified No Known Drug Allergies 09/10/14 No MEDS Medications: Current Medications Medications (Trade) Dose Ordered Sig/Birgit Start Time Stop Time Status Last Admin Dose Admin Acetaminophen (Tylenol) 650 mg PRN Q4HRS PRN 03/07/17 03:15 03/08/17 03:14 DC 03/07/17 17:34 650 MG Acetaminophen/ Hydrocodone Bitart (Lortab 7.5/325) 2 tab PRN Q4HRS PRN 03/08/17 08:45 Alprazolam (Xanax) 1 mg PRN Q6HRS PRN 03/07/17 19:15 03/10/17 07:57 1 MG Aspirin (Yessica Aspirin) 325 mg BID 03/08/17 09:00 03/10/17 07:57 325 MG Atorvastatin Calcium (Lipitor) 20 mg HS 03/07/17 21:00 03/09/17 20:56 20 MG Bisacodyl (Dulcolax Supp) 10 mg 1X PRN PRN 03/09/17 16:00 03/10/17 15:59 Bupivacaine HCl/ Epinephrine Bitart (Marcaine-Epi 0.25%-1:603428) 50 ml STK-MED ONCE 03/08/17 06:53 03/08/17 06:54 DC 03/08/17 07:57 30 ML Cefazolin Sodium (Ancef) 1 gm Q6H 03/08/17 14:00 03/09/17 02:01 DC 03/09/17 02:22 1 GM Cefazolin Sodium 1 gm/Dextrose 50 ml @ 100 mls/hr Q6H 03/08/17 08:45 03/08/17 21:14 UNV Cefazolin Sodium/ Dextrose 50 ml @ 100 mls/hr 1X PREOP PRN 03/07/17 14:45 03/09/17 17:18 DC 03/08/17 07:50 100 MLS/HR Dexamethasone Sodium Phosphate (Decadron) 20 mg STK-MED ONCE 03/08/17 07:03 03/08/17 07:04 DC Dextrose (Dextrose 50%-Water Syringe) 12.5 gm PRN Q15MIN PRN 03/08/17 08:45 Diphtheria/ Tetanus/Acell Pertussis (Boostrix) 0.5 ml ONCE ONCE 03/07/17 00:00 03/07/17 00:01 DC 03/07/17 00:58 0.5 ML Fentanyl Citrate (Fentanyl 2ml Vial) 25 mcg PRN Q1HR PRN 03/08/17 08:45 Fluoxetine HCl (PROzac) 20 mg DAILYWBKFT 03/08/17 08:00 03/08/17 18:38 DC Hydromorphone HCl (Dilaudid) 0.5 mg PRN Q10MIN PRN 03/08/17 07:30 03/09/17 07:29 DC Levothyroxine Sodium (Synthroid) 112 mcg DAILYAC 03/08/17 07:30 03/10/17 06:23 112 MCG Lidocaine HCl (Lidocaine Pf 2% Vial) 5 ml STK-MED ONCE 03/08/17 07:02 03/08/17 07:03 DC Lidocaine HCl (Xylocaine-Mpf 1% Vial) 2 ml 1X PRN PRN 03/08/17 07:30 03/09/17 07:29 DC Magnesium Hydroxide (Milk Of Magnesia) 2,400 mg 1X PRN PRN 03/09/17 06:00 03/10/17 05:59 DC Midazolam HCl (Versed) 2 mg STK-MED ONCE 03/08/17 07:25 03/08/17 07:26 DC Morphine Sulfate 4 mg PRN Q2HR PRN 03/08/17 08:45 03/10/17 07:58 4 MG Ondansetron HCl (Zofran) 4 mg PRN Q4HRS PRN 03/08/17 08:45 Oxycodone HCl (Roxicodone) 5 mg PRN Q3HRS PRN 03/08/17 08:45 Pantoprazole Sodium (Protonix) 40 mg DAILYAC 03/08/17 07:30 03/10/17 06:23 40 MG Phenylephrine HCl 1 mg STK-MED ONCE 03/08/17 08:10 03/08/17 08:11 DC Polyethylene Glycol (miraLAX PACKET) 17 gm PRN DAILY PRN 03/08/17 08:45 Prochlorperazine Edisylate (Compazine) 5 mg PACU PRN PRN 03/08/17 07:30 03/09/17 07:29 DC Propofol 20 ml @ As Directed STK-MED ONCE 03/08/17 07:02 03/08/17 07:03 DC Ringer's Solution 1,000 ml @ 30 mls/hr Q24H 03/08/17 07:20 03/08/17 19:19 DC Senna/Docusate Sodium (Senna Plus) 1 tab DAILY 03/08/17 09:00 Sevoflurane (Ultane) 30 ml STK-MED ONCE 03/08/17 08:19 03/08/17 08:20 DC Sodium Chloride 500 ml @ 500 mls/hr 1X ONCE 03/07/17 03:15 03/07/17 04:14 DC 03/07/17 02:50 500 MLS/HR Vitamin D (Vitamin D3) 5,000 unit DAILY 03/08/17 09:00 03/10/17 07:57 5,000 UNIT Zolpidem Tartrate (Ambien) 5 mg PRN QHS PRN 03/07/17 19:15 03/09/17 23:00 5 MG RUTHIE TREVIÑO MD Mar 10, 2017 08:41
[2017-03-10 11:00] VITALS: BP 113/72
[2017-03-10] MEDS ORDERED: FLU VACC QS2017-18 (36MOS+)/PF 0.5 ML SYRINGE. VAX IM ONE (11:00)
[2017-03-10 14:02] VITALS: BP 110/75
--- NOTE | 2017-03-10 14:06 | PDOC ---
PROGRESS NOTES Subjective Subjective States she continues to improve. Was able to walk a little further today with therapy. Objective Vital Signs Vital Signs Date Time Temp Pulse Resp B/P (MAP) Pulse Ox O2 Delivery O2 Flow Rate FiO2 03/10/17 14:02 98.1 75 18 110/75 (87) 97 Nasal Cannula 2.0 98.1 Physical Exam Sitting in recliner eating lunch. Right hip dressing dry and intact. Calf soft and nontender with a negative Nia's sign. Good dorsiflexion and plantarflexion with no evidence of neurovascular injury. Peripheral pulses and light touch sensation intact. Labs Laboratory Tests Test 03/09/17 08:25 Hemoglobin 10.4 g/dL (12.0-15.5) Hematocrit 31.0 % (36.0-47.0) Mean Corpuscular Hemoglobin Concent 34 g/dL (31-37) Assessment Assessment POD #2 right hip percutaneous pinning Problems: Plan Plan of Care Continue POC including DVT ppx and therapy. Probable SNU placement upon discharge. Waiting on cockup wrist splint from [facility] for left wrist - may use wrist as tolerated, no specific restrictions. Followup with [facility] in 10-14 days. SON LOWRY Mar 10, 2017 14:06
[2017-03-10 19:00] VITALS: BP 107/65
[2017-03-10] MEDS: ATORVASTATIN CALCIUM 20 MG TABLET PO SCH (21:30)
[2017-03-10 23:00] VITALS: BP 130/73
[2017-03-11] MEDS: ZOLPIDEM 5 MG TABLET. PO PRN (01:01)
[2017-03-11] MEDS: ALPRAZolam 1 MG TABLET PO PRN ×2 (01:01→09:05)
[2017-03-11] MEDS: HYDROcodone/APAP 7.5/325MG 1 TAB TABLET PO PRN ×2 (01:04→09:05)
[2017-03-11 02:03] VITALS: BP 125/77
[2017-03-11] MEDS: PANTOPRAZOLE 40 MG TABLET.DR. PO SCH (05:57)
[2017-03-11] MEDS: LEVOTHYROXINE 112 MCG TABLET PO SCH (05:57)
[2017-03-11 07:00] VITALS: BP 148/70
--- NOTE | 2017-03-11 08:25 | PDOC ---
GENERAL General: vss and afebrile. awake and alert. chest clear and heart regular. ko penn this am. progressing in therapy. to snu when approved. Problems: VITAL SIGNS Vital Signs: Vital Signs Date Time Temp Pulse Resp B/P (MAP) Pulse Ox O2 Delivery O2 Flow Rate FiO2 03/11/17 02:04 Room Air 03/11/17 02:03 98.9 78 16 125/77 (93) 98.9 03/10/17 23:00 92 2.0 ALLERGIES Allergies: Allergies Coded Allergies Type Severity Reaction Last Updated Verified No Known Drug Allergies 09/10/14 No MEDS Medications: Current Medications Medications (Trade) Dose Ordered Sig/Birgit Start Time Stop Time Status Last Admin Dose Admin Acetaminophen (Tylenol) 650 mg PRN Q4HRS PRN 03/07/17 03:15 03/08/17 03:14 DC 03/07/17 17:34 650 MG Acetaminophen/ Hydrocodone Bitart (Lortab 7.5/325) 2 tab PRN Q4HRS PRN 03/08/17 08:45 03/11/17 01:04 2 TAB Alprazolam (Xanax) 1 mg PRN Q6HRS PRN 03/07/17 19:15 03/11/17 01:01 1 MG Aspirin (Yessica Aspirin) 325 mg BID 03/08/17 09:00 03/10/17 21:30 325 MG Atorvastatin Calcium (Lipitor) 20 mg HS 03/07/17 21:00 03/10/17 21:30 20 MG Bisacodyl (Dulcolax Supp) 10 mg 1X PRN PRN 03/09/17 16:00 03/10/17 15:59 DC Bupivacaine HCl/ Epinephrine Bitart (Marcaine-Epi 0.25%-1:811414) 50 ml STK-MED ONCE 03/08/17 06:53 03/08/17 06:54 DC 03/08/17 07:57 30 ML Cefazolin Sodium (Ancef) 1 gm Q6H 03/08/17 14:00 03/09/17 02:01 DC 03/09/17 02:22 1 GM Cefazolin Sodium 1 gm/Dextrose 50 ml @ 100 mls/hr Q6H 03/08/17 08:45 03/08/17 21:14 UNV Cefazolin Sodium/ Dextrose 50 ml @ 100 mls/hr 1X PREOP PRN 03/07/17 14:45 03/09/17 17:18 DC 03/08/17 07:50 100 MLS/HR Dexamethasone Sodium Phosphate (Decadron) 20 mg STK-MED ONCE 03/08/17 07:03 03/08/17 07:04 DC Dextrose (Dextrose 50%-Water Syringe) 12.5 gm PRN Q15MIN PRN 03/08/17 08:45 Diphtheria/ Tetanus/Acell Pertussis (Boostrix) 0.5 ml ONCE ONCE 03/07/17 00:00 03/07/17 00:01 DC 03/07/17 00:58 0.5 ML Fentanyl Citrate (Fentanyl 2ml Vial) 25 mcg PRN Q1HR PRN 03/08/17 08:45 Fluoxetine HCl (PROzac) 20 mg DAILYWBKFT 03/08/17 08:00 03/08/17 18:38 DC Hydromorphone HCl (Dilaudid) 0.5 mg PRN Q10MIN PRN 03/08/17 07:30 03/09/17 07:29 DC Influenza Virus Vaccine Quadrival (Fluarix Quad [id number] Syringe) 0.5 ml ONCE ONCE 03/10/17 11:00 03/10/17 11:01 DC Levothyroxine Sodium (Synthroid) 112 mcg DAILYAC 03/08/17 07:30 03/11/17 05:57 112 MCG Lidocaine HCl (Lidocaine Pf 2% Vial) 5 ml STK-MED ONCE 03/08/17 07:02 03/08/17 07:03 DC Lidocaine HCl (Xylocaine-Mpf 1% Vial) 2 ml 1X PRN PRN 03/08/17 07:30 03/09/17 07:29 DC Magnesium Hydroxide (Milk Of Magnesia) 2,400 mg 1X PRN PRN 03/09/17 06:00 03/10/17 05:59 DC Midazolam HCl (Versed) 2 mg STK-MED ONCE 03/08/17 07:25 03/08/17 07:26 DC Morphine Sulfate 4 mg PRN Q2HR PRN 03/08/17 08:45 03/10/17 07:58 4 MG Ondansetron HCl (Zofran) 4 mg PRN Q4HRS PRN 03/08/17 08:45 Oxycodone HCl (Roxicodone) 5 mg PRN Q3HRS PRN 03/08/17 08:45 Pantoprazole Sodium (Protonix) 40 mg DAILYAC 03/08/17 07:30 03/11/17 05:57 40 MG Phenylephrine HCl 1 mg STK-MED ONCE 03/08/17 08:10 03/08/17 08:11 DC Polyethylene Glycol (miraLAX PACKET) 17 gm PRN DAILY PRN 03/08/17 08:45 Prochlorperazine Edisylate (Compazine) 5 mg PACU PRN PRN 03/08/17 07:30 03/09/17 07:29 DC Propofol 20 ml @ As Directed STK-MED ONCE 03/08/17 07:02 03/08/17 07:03 DC Ringer's Solution 1,000 ml @ 30 mls/hr Q24H 03/08/17 07:20 03/08/17 19:19 DC Senna/Docusate Sodium (Senna Plus) 1 tab DAILY 03/08/17 09:00 Sevoflurane (Ultane) 30 ml STK-MED ONCE 03/08/17 08:19 03/08/17 08:20 DC Sodium Chloride 500 ml @ 500 mls/hr 1X ONCE 03/07/17 03:15 03/07/17 04:14 DC 03/07/17 02:50 500 MLS/HR Vitamin D (Vitamin D3) 5,000 unit DAILY 03/08/17 09:00 03/10/17 07:57 5,000 UNIT Zolpidem Tartrate (Ambien) 5 mg PRN QHS PRN 03/07/17 19:15 03/11/17 01:01 5 MG RUTHIE TREVIÑO MD Mar 11, 2017 08:25
[2017-03-11] MEDS: SENNOSIDES/DOCUSATE 8.6/50MG TABLET. PO SCH (09:00)
[2017-03-11] MEDS: CHOLECALCIFEROL (VITAMIN D3) 5,000 UNIT CAPSULE PO SCH (09:00)
[2017-03-11] MEDS: ASPIRIN 325 MG TABLET PO SCH (09:00)
[2017-03-11 11:33] VITALS: BP 128/66
--- NOTE | 2017-03-12 18:07 | DS ---
DATE OF DISCHARGE: PRIMARY DIAGNOSIS: Fall with right hip fracture. ADDITIONAL DIAGNOSES: Postop anemia, hypothyroidism, gastroesophageal reflux disease, anxiety, hyperlipidemia. CHIEF COMPLAINT AND HISTORY OF PRESENT ILLNESS: This 67-year-old white female is well known to me from followup in the office. The patient sustained a fall on the day of admission, was going to [employer] on the evening of admission when she fell going in. It took 5 people there to get her up to a chair. She was found to have a right femoral neck fracture in the Emergency Room and admitted for the same. Interestingly, she states her balance has not been the best for the last couple of years and she has had right wrist, left wrist and hip fracture over that length of time. SUMMARY OF STAY: The patient was admitted. Preoperative evaluation was essentially unremarkable. She did have some postop anemia, but did go for repair of the hip with intramedullary percutaneous screw fixation of the right hip femoral neck fracture by Dr. Harmon. Postoperatively, did fairly well with expected pain. Hemoglobin postoperatively went down to 10.4. She was felt ready for [facility]pc and transfer on the day of dismissal. DISPOSITION: The patient is discharged to [facility]pc. DIET: Regular diet. ACTIVITY: As tolerated. PT and OT evaluate. We will continue to follow her there. DISCHARGE MEDICATIONS: Listed on the med rec and have been addressed. RUTHIE TREVIÑO MD DR: CINTHYA/sharla JOB#: [id number] / [id number]
== END 2017-03-11 11:45 | DRG 481 ==
LOC: ER 23:33 → 4 NORTH 03-07 03:09
PROVIDERS: ADMIT Family Medicine; ATTEND Family Medicine
PROC: 0QS634Z Reposition Right Upper Femur with Internal Fixation Device, Percutaneous Approach (ICD-10-PCS; principal; 2017-03-08 07:30)
DX: S72.011A Unspecified intracapsular fracture of right femur, initial encounter for closed fracture (principal); E44.1 Mild protein-calorie malnutrition; D64.9 Anemia, unspecified; W01.0XXA Fall on same level from slipping, tripping and stumbling without subsequent striking against object, initial encounter; E03.9 Hypothyroidism, unspecified; E78.00 Pure hypercholesterolemia, unspecified; E78.5 Hyperlipidemia, unspecified; K21.9 Gastro-esophageal reflux disease without esophagitis; F32.9 Major depressive disorder, single episode, unspecified; F41.9 Anxiety disorder, unspecified; K82.9 Disease of gallbladder, unspecified; Z90.710 Acquired absence of both cervix and uterus; Y93.89 Activity, other specified; Y92.89 Other specified places as the place of occurrence of the external cause; Y99.8 Other external cause status; Z68.23 Body mass index [BMI] 23.0-23.9, adult
CPT/HCPCS: 36415; 51702; 70450; 71010; 72125; 72192; 73070; 73110; 73502; 76000; 80053; 82306; 85014; 85018; 85025; 85610; 85730; 87641; 90471; 90686; 90715; 93005; 96361; 96374; 96375; A4215; C1713; C1769; C1887; J0690; J1100; J1170; J2250; J2270; J2370; J2405; J2704; J3010; J7030; J7040; J7120; 97110; 97116; 97530; 97535; 99285-25; J2001

== ENCOUNTER 2019-06-02 21:52 | Emergency (ER) | payer MEDICARE, MEDICAID ==
[~2019-06-02] VITALS: Ht 175.3 cm; Wt 63.6 kg
[~2019-06-02 21:52] MED LIST changes: +HYDR-3164 PO; -HYDR-971 PO; +PANT40TA77; +TRAM50TA
--- NOTE | 2019-06-02 23:17 | PHYS DOC ---
Past Medical History Past Medical History: Anxiety, Depression, GERD, High Cholesterol, Hypothyroid Additional Past Medical Histor: "gallbladder problems", "liver problem" Past Surgical History: Hysterectomy, Tonsillectomy Additional Past Surgical Histo: R wrist fx Smoking Status: Current Every Day Smoker Additional Information: Stated has not smoked in [address] does not allow smoking Alcohol Use: None Drug Use: None Adult General Chief Complaint Chief Complaint: LOWER BACK PAIN OR INJURY HPI HPI 69-year-old female presents with a chief complaint of lower back pain. Patient arrived by EMS with the complaint of lower back pain states been ongoing since May 23. Patient states she recently moved into a new facility in pain was ex acerbated by packing and lifting. She states she has chronic back pain usually takes Ultram but ran out. Patient also complains of chest discomfort. Patient states pain started tonight she rates it a 10 out of 10. Patient states chest pain comes and goes. Patient had episodes of vomiting in the ambulance. Review of Systems Review of Systems Review of systems: Constitutional symptoms- No fever, no chills. Eyes- No Discharge, No Visual Loss, Respiratory symptoms- No shortness of breath, No wheezing, No Dyspnea on Exertion Cardiovascular Systems; positive chest pain.No Palpitations, No syncope Gastrointestinal symptoms: positive abdominal pain, positive nausea, positive vomiting no diarrhea. Genitourinary symptoms: No dysuria. No vaginal bleeding. Musculoskeletal symptoms: positive back pain nor extremity pain. NEUROLOGICAL Symptoms: No headache, no generalized weakness; No focal Weakness, All other systems were reviewed and found to be within normal limits, except as documented in this note. Current Medications Current Medications Current Medications Medications (Trade) Dose Ordered Sig/[facility] Start Time Stop Time Status Last Admin Dose Admin Ketorolac Tromethamine (Toradol 15mg Vial) 15 mg 1X ONCE 06/02/19 23:30 06/02/19 23:31 DC 06/02/19 23:46 15 MG Tramadol HCl (Ultram) 50 mg 1X ONCE 06/02/19 23:30 06/02/19 23:31 DC 06/02/19 23:46 50 MG Allergies Allergies Allergies Coded Allergies Type Severity Reaction Last Updated Verified No Known Drug Allergies 09/10/14 No Physical Exam Physical Exam Constitutional: Well developed, well nourished, no acute distress, non-toxic appearance. [] HENT: Normocephalic, atraumatic, bilateral external ears normal, oropharynx moist, no oral exudates, nose normal. [] Eyes: PERRLA, EOMI, conjunctiva normal, no discharge. [] Neck: Normal range of motion, no tenderness, supple, no stridor. [] Cardiovascular:Heart rate regular rhythm, no murmur [] Lungs & Thorax: Bilateral breath sounds clear to auscultation [] Abdomen: Bowel sounds normal, soft, no tenderness, no masses, no pulsatile masses. [] Skin: Warm, dry, no erythema, no rash. [] Back: No tenderness, no CVA tenderness. [] Extremities: No tenderness, no cyanosis, no clubbing, ROM intact, no edema. [] Neurologic: Alert and oriented X 3, normal motor function, normal sensory function, no focal deficits noted. [] Psychologic: Affect normal, judgement normal, mood normal. [] Current Patient Data Vital Signs Vital Signs Date Time Temp Pulse Resp B/P (MAP) Pulse Ox O2 Delivery O2 Flow Rate FiO2 06/02/19 23:46 20 06/02/19 21:58 98.4 77 145/79 (101) 98 Room Air 98.4 Lab Values Laboratory Tests Test 06/02/19 23:36 Troponin I Quantitative < 0.017 ng/mL (0.000-0.055) EKG EKG [] Interpretation Time: EKG 2226 heart rate [address] elevation [address] ST depression no acute MA Radiology/Procedures Radiology/Procedures [] Course & Med Decision Making Course & Med Decision Making Pertinent Labs and Imaging studies reviewed. (See chart for details) []Was evaluated for chief complaint. Workup consisted of EKG troponin and radiologic imaging. Results reviewed and discussed with patient. No acute fr actures. Radiologist's impression of abdomen ileus. Wedge fracture lumbar spine appears chronic. She was treated with Ultram with improvement of pain. Patient tolerated by mouth. No vomiting in the ER. Patient discharged home. Dragon Disclaimer Dragon Disclaimer This electronic medical record was generated, in whole or in part, using a voice recognition dictation system. Departure Departure Impression: Primary Impression: Back pain Disposition: HOME, SELF-CARE Condition: STABLE Referrals: RUTHIE TREVIÑO MD (PCP) Patient Instructions: Chronic Back Pain Scripts Tramadol Hcl (ULTRAM) 50 Mg Tablet 1 TAB PO PRN Q6HRS PRN for pain MDD 4 Tablet(s) for 7 Days, #28 TAB 0 Refills Prov: HAL JOSEPH I DO 06/03/19 HAL JOSEPH I DO Jun 02, 2019 23:17
[2019-06-02] MEDS ORDERED: KETOROLAC 15 MG/ML VIAL. IVP ONE (23:30)
[2019-06-02] MEDS ORDERED: traMADol 50 MG TABLET PO ONE (23:30)
--- NOTE | 2019-06-02 23:49 | RAD ---
Study: 1. ABDOMEN SUPINE UPRIGHT 2. LUMBAR SPINE 2-3V 3. CHEST AP ONLY Indication: Chest and abdominal pain. Comparison: 03/07/2017 chest radiograph Findings: Chest: Redemonstrated prominent hiatal hernia. Eventration of the right hemidiaphragm. The configuration of the cardiomediastinal silhouette is overall similar to the prior given differences in patient positioning. Tortuosity of the aorta. Bibasilar volume loss and regions of scarring. Unchanged nodule at the periphery of the right midlung most compatible with a granuloma. No pneumothorax. No newly seen localized airspace opacity. Osteopenia. ABDOMEN: Generalized gaseous distention of bowel appear mostly to involve colon. Approaching the hepatic flexure, loop of colon appears to measure approximately 11 cm transverse. Air is seen within the distal aspect of the colon. No free air is identified with particular attention paid to the undersurface of the diaphragm. Lumbar spine: Degraded AP view due to extensive bowel gas. Sigmoid curvature of the spinal column with dextroconvex involvement of the thoracic spine and levoconvex involvement of the lumbar spine. Mild wedging of the T12 vertebral body. Lumbar vertebral body height is maintained. Mild multilevel discogenic arthrosis. Multilevel facet degeneration. Vascular calcifications. Right femur surgical screws are partially visualized. Impression: CHEST: 1. Chronic changes of the lungs and a prominent hiatal hernia without an acute abnormality by radiography. ABDOMEN: 1. Diffuse gaseous distention of bowel which appears to predominantly involve the colon. Air is seen within the distal aspect of the colon. The appearance is more suggestive of an ileus than obstruction. No free air is well seen. LUMBAR SPINE: 1. Mild wedging of the T12 vertebral body favored chronic in the absence of localized tenderness. Vertebral body height is otherwise maintained. 2. Mild multilevel discogenic arthrosis in scattered levels with facet degeneration. 3. Osteopenia. Electronically signed by: JIMMY RANDLE MD (06/02/2019 11:46 PM) [id number]
[2019-06-03 01:00] VITALS: BP 148/86
[2019-06-03] MEDS ORDERED: TRAM-48 PO (01:03)
--- NOTE | 2019-06-03 06:26 | EKG ---
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
== END 2019-06-03 04:20 | disposition home or self-care (01) ==
LOC: ER 21:52
DX: M54.5 Low back pain (principal); G89.29 Other chronic pain; R07.89 Other chest pain; F41.9 Anxiety disorder, unspecified; F32.9 Major depressive disorder, single episode, unspecified; K21.9 Gastro-esophageal reflux disease without esophagitis; E78.00 Pure hypercholesterolemia, unspecified; E03.9 Hypothyroidism, unspecified; Z90.710 Acquired absence of both cervix and uterus; F17.200 Nicotine dependence, unspecified, uncomplicated
CPT/HCPCS: 36415; 71045; 72100; 74021; 84484; 93005; 96374; 99285; J1885